=== PATIENT | male | born 1985 | race Hispanic/Latino ===

== ENCOUNTER 2016-12-19 02:26 | Emergency (ER) | payer MEDICAID ==
[2016-12-19] MEDS ORDERED: MOTRIN PO ONE (07:35)
[2016-12-19] MEDS ORDERED: BICILLIN L-A IM ONE (07:35)
[2016-12-19] MEDS ORDERED: DELTASONE PO ONE (07:36)
--- NOTE | 2016-12-19 07:36 | Emergency Department Report ---
HPI - General Chief Complaint: Sore Throat Time Seen by Provider: 12/19/16 07:11 - HPI HPI: Seen here reports that her throat, fever on and off for 3 days. He denies any coughing nasal congestion or headache. Denies any chest pain or shortness of breath. He said he took Motrin [id number] to help with a sore throat. Reports pain is 8 out of 10 and worse with swallowing. Denies any drooling. ED Past Medical Hx - Past Medical History Previous Medical History?: Yes Hx Psychiatric Treatment: Yes Hx Asthma: Yes Additional medical history: bipolar. schizophrenia - Surgical History Past Surgical History?: Yes Additional Surgical History: Left Leg fracture Repair. - Family History Family history: no significant - Social History Smoking Status: Current Every Day Smoker Substance Use Type: None - Medications Home Medications: Home Medications Medication Instructions Recorded Confirmed Last Taken Type Paliperidone Palmitate [Invega 78 mg IM QMONTH 11/02/13 12/19/16 3 Weeks Ago History Sustenna] Ibuprofen [Motrin] 600 mg PO Q8H PRN #15 tablet 12/19/16 Unknown Rx ED Review of Systems ROS: Stated complaint: SORE THROAT Other details as noted in HPI Comment: All other systems reviewed and negative Constitutional: fever. denies: chills Eyes: denies: eye pain, eye discharge ENT: throat pain. denies: ear pain, congestion Respiratory: no symptoms reported Cardiovascular: denies: chest pain, palpitations, edema, syncope Gastrointestinal: denies: abdominal pain, nausea, vomiting Musculoskeletal: denies: back pain, arthralgia Neurological: denies: headache Physical Exam - Physical Exam Vital Signs: Vital Signs 12/19/16 02:43 Temperature 97.8 F Pulse Rate 77 Respiratory 18 Rate Blood Pressure 121/70 O2 Sat by Pulse 96 Oximetry General: This is a 31-year-old male well-nourished well-developed in no acute distress. Physical Exam: Head: Normocephalic atraumatic Mouth: Moist, positive pharyngeal exudate and erythema. Uvula is midline and oral airway is patent. No gingival enlargement or dental tenderness. No facial swelling. No peritonsillar abscesses. Neck: Supple, no C-spine tenderness, no tracheal deviation. Nontender to palpate. Positive anterior cervical adenopathy Ears: Bilateral Pearly Rosas .bilateral EAC without any redness swelling or drainage Eyes: Bilateral pupils equal and reactive to light, bilateral EOM intact. Bilateral sclera and conjunctiva without injection. Normal accommodation Nose: Mucosa moist, Normal mucosa. maxillary and frontal sinus non-tender to palpate. Lungs: Clear to auscultate bilaterally no rhonchi wheezes or rales. Normal work of breathing extremity; No CCE. +2 pulses. No neurovascular compromise Cardiovascular: S1-S2, regular rate rhythm. No murmurs. Skin: clean Dry and intact no rash no lesions Psych: Normal mood and behavior ED Course Vital Signs 12/19/16 02:43 Temperature 97.8 F Pulse Rate 77 Respiratory 18 Rate Blood Pressure 121/70 O2 Sat by Pulse 96 Oximetry - Reevaluation(s) Reevaluation #1: 12/19/16 07:46 Patient stable, given Bicillin LA, Motrin and Deltasone emergency room. ED Medical Decision Making - Medical Decision Making ED course: complaints of sore throat and fever. His vital signs are stable at present. Based on [facility] criteria patient with strep pharyngitis. He has reports of fever, exudative pharyngitis and enlarged lymph nodes. I discussed treatment plan with patient and gave them the option to be treated with Bicillin LA oh to be treated with penicillin for 10 days and he chose to be treated with Bicillin L-A in emergency room. Patient given Motrin 800 mg by mouth, prednisone 60 mg by mouth and Bicillin 1.2 MU in emergency room no adverse reaction. Patient stable discharged home with prescription for Motrin and to follow-up with his primary care physician in 3-5 days. Critical care attestation.: If time is entered above; I have spent that time in minutes in the direct care of this critically ill patient, excluding procedure time. ED Disposition Clinical Impression: Exudative pharyngitis Disposition: DISCHARGED TO HOME OR SELFCARE Is pt being admited?: No Does the pt Need Aspirin: No Condition: Stable Instructions: Strep Throat (ED) Additional Instructions: With warm salt water to relieve sore throat You received Bicillin long-acting injection and this associated body for 2 weeks. Take Motrin for sore throat. Prescriptions: Ibuprofen [Motrin] 600 mg PO Q8H PRN #15 tablet PRN Reason: Pain Referrals: PRIMARY CARE,MD [Primary Care Provider] - 3-5 Days Forms: Work/School Release Form(ED)
[2016-12-19 08:14] VITALS: BP 128/76
== END 2016-12-19 08:01 | disposition home or self-care (01) ==
LOC: ED 02:26
DX: J02.9 Acute pharyngitis, unspecified (principal); J45.909 Unspecified asthma, uncomplicated; F31.9 Bipolar disorder, unspecified; F20.9 Schizophrenia, unspecified; F17.200 Nicotine dependence, unspecified, uncomplicated
CPT/HCPCS: 96372; 99282; J0561; J7512

== ENCOUNTER 2018-05-21 00:05 | Emergency (ER) | payer MEDICAID ==
[2018-05-21] MEDS ORDERED: TYLENOL PO ONE (00:53)
[2018-05-21] MEDS ORDERED: MOTRIN PO ONE (05:07)
[2018-05-21] MEDS ORDERED: MOTRIN ONE (05:11)
[2018-05-21] MEDS ORDERED: DECADRON IV ONE (05:18)
[2018-05-21] MEDS ORDERED: NACL 0.9% 1000 ML 1,000 ML IV ONE (05:23)
[2018-05-21] MEDS ORDERED: PROVENTIL IH ONE (05:26)
[2018-05-21] MEDS ORDERED: CLEOCIN 900 MG/50 mL 900 MG/50 ML BAG IV ONE (05:26)
--- NOTE | 2018-05-21 05:53 | XRay Report ---
FINAL REPORT PROCEDURE: XR CHEST ROUTINE 2V TECHNIQUE: PA and lateral chest radiographs were obtained. CPT 19727 HISTORY: cough wheezing COMPARISON: No prior studies are available for comparison. FINDINGS: Heart: Normal. Mediastinum/Vessels: Normal. Lungs/Pleural space: Normal. Bony thorax: No acute osseous abnormality. Other: IMPRESSION: Normal examination.
[2018-05-21 06:19] LABS: Basophils # (Auto) 0.1 K/mm3 (0.0-0.1); Basophils % (Auto) 0.4 % (0.0-1.8); Eosinophils % (Auto) 0.3 % (0.0-4.3); Hematocrit 42.2 % (35.5-45.6); Hemoglobin 14.4 gm/dl (11.8-15.2); Lymphocytes # (Auto) 1.5 K/mm3 (1.2-5.4); Lymphocytes % (Auto) 10.6 % (13.4-35.0); Mean Corpuscular HGB Conc 34 % (32-34); Mean Corpuscular Hemoglobin 28 pg (28-32); Mean Corpuscular Volume 82 fl (84-94); Monocytes # (Auto) 1.4 K/mm3 (0.0-0.8); Monocytes % (Auto) 10.2 % (0.0-7.3); Platelet Count 257 K/mm3 (140-440); Red Blood Count 5.17 M/mm3 (3.65-5.03); Red Cell Distribution Width 13.6 % (13.2-15.2)
[2018-05-21 06:29] LABS: INR 1.18 (0.87-1.13)
[2018-05-21 06:30] LABS: Partial Thromboplastin Time 32.5 Sec. (24.2-36.6)
--- NOTE | 2018-05-21 06:45 | Emergency Department Report ---
<BRAD WALTERS - Last Filed: 05/21/18 07:01> ED General Adult HPI - General Chief complaint: Fever Stated complaint: SORE THROAT FEVER Time Seen by Provider: 05/21/18 05:17 Source: patient Mode of arrival: Ambulatory Limitations: No Limitations - History of Present Illness Initial comments: Patient is a 32-year-old white male who presented for sore throat and fever 104.1 subjective over the past 2 days states sore throat S Kojo worsening symptoms include dysphagia cough productive wheezing with nausea and vomiting, patient denies chest pain does endorse history of bronchitis there are no relieving or exacerbating factors. Onset/Timin -: days(s) Severity scale (0 -10): 5 Quality: burning, sharp Consistency: constant Improves with: none, eating Worsens with: movement, other (activity ) Associated Symptoms: cough, fever/chills, headaches, loss of appetite, malaise, nausea/vomiting. denies: confusion, chest pain, rash, shortness of breath, syncope, weakness - Related Data Home Medications Medication Instructions Recorded Confirmed Last Taken Paliperidone Palmitate [Invega 78 mg IM QMONTH 11/02/13 12/19/16 3 Weeks Ago Sustenna] ~11/28/16 Previous Rx's Medication Instructions Recorded Last Taken Type Ibuprofen [Motrin] 600 mg PO Q8H PRN #15 tablet 12/19/16 Unknown Rx Benzocaine/Menth/Cetylpyrd 1 each MM Q2H PRN #3 packet 05/21/18 Unknown Rx [Cepacol X Strength] Clindamycin [Clindamycin CAP] 300 mg PO Q8H #30 cap 05/21/18 Unknown Rx Dexamethasone [Decadron] 4 mg PO BID #4 tablet 05/21/18 Unknown Rx Ibuprofen 800 mg PO TID PRN #30 tablet 05/21/18 Unknown Rx Allergies Allergy/AdvReac Type Severity Reaction Status Date / Time ziprasidone HCl [From [facility]] Allergy Unknown Verified 12/19/16 02:43 ziprasidone mesylate Allergy Unknown Verified 12/19/16 02:43 [From [facility]] ED Review of Systems ROS: Stated complaint: SORE THROAT FEVER Other details as noted in HPI Constitutional: chills, fever Eyes: denies: eye pain, eye discharge, vision change ENT: throat pain, congestion Respiratory: cough, wheezing Cardiovascular: denies: chest pain, palpitations Endocrine: no symptoms reported Gastrointestinal: nausea, vomiting. denies: abdominal pain, diarrhea Genitourinary: denies: urgency, dysuria Musculoskeletal: denies: back pain, joint swelling, arthralgia Skin: denies: rash, lesions Neurological: as per HPI, headache. denies: weakness, numbness, paresthesias, confusion, abnormal gait, vertigo Psychiatric: denies: anxiety, depression Hematological/Lymphatic: denies: easy bleeding, easy bruising ED Past Medical Hx - Past Medical History Previous Medical History?: Yes Hx Psychiatric Treatment: Yes Hx Asthma: Yes Additional medical history: bipolar. schizophrenia - Surgical History Past Surgical History?: Yes Additional Surgical History: Left Leg fracture Repair. - Social History Smoking Status: Current Every Day Smoker Substance Use Type: None - Medications Home Medications: Home Medications Medication Instructions Recorded Confirmed Last Taken Type Paliperidone Palmitate [Invega 78 mg IM QMONTH 11/02/13 12/19/16 3 Weeks Ago History Sustenna] ~11/28/16 Ibuprofen [Motrin] 600 mg PO Q8H PRN #15 tablet 12/19/16 Unknown Rx Benzocaine/Menth/Cetylpyrd 1 each MM Q2H PRN #3 packet 05/21/18 Unknown Rx [Cepacol X Strength] Clindamycin [Clindamycin CAP] 300 mg PO Q8H #30 cap 05/21/18 Unknown Rx Dexamethasone [Decadron] 4 mg PO BID #4 tablet 05/21/18 Unknown Rx Ibuprofen 800 mg PO TID PRN #30 tablet 05/21/18 Unknown Rx ED Physical Exam - General Limitations: No Limitations General appearance: alert, in no apparent distress - Head Head exam: Present: atraumatic, normocephalic - Eye Eye exam: Present: normal appearance, PERRL, EOMI Pupils: Present: normal accommodation - ENT ENT exam: Present: mucous membranes moist, TM's normal bilaterally - Expanded ENT Exam Expanded Ear exam: Present: normal external inspection Throat exam: Positive: tonsillar erythema, tonsillomegaly, tonsillar exudate. Negative: R peritonsillar mass, L peritonsillar mass - Neck Neck exam: Present: normal inspection, full ROM, lymphadenopathy. Absent: tenderness, meningismus, thyromegaly - Respiratory Respiratory exam: Present: wheezes, chest wall tenderness - Cardiovascular Cardiovascular Exam: Present: regular rate, normal rhythm, normal heart sounds. Absent: systolic murmur, diastolic murmur, rubs, gallop - GI/Abdominal GI/Abdominal exam: Present: soft, normal bowel sounds. Absent: tenderness, bruit, hernia - Rectal Rectal exam: Present: deferred - Extremities Exam Extremities exam: Present: normal inspection - Back Exam Back exam: Present: normal inspection, full ROM. Absent: tenderness, CVA tenderness (R), CVA tenderness (L), muscle spasm, paraspinal tenderness - Neurological Exam Neurological exam: Present: alert, oriented X3, CN II-XII intact, normal gait - Psychiatric Psychiatric exam: Present: normal affect, normal mood - Skin Skin exam: Present: warm, dry, intact, normal color. Absent: rash ED Course Vital Signs 05/21/18 05/21/18 00:51 05:07 Temperature 102.9 F H 102.2 F H Pulse Rate 105 H Respiratory 18 Rate Blood Pressure 130/78 O2 Sat by Pulse 98 Oximetry ED Medical Decision Making - Lab Data Result diagrams: 05/21/18 05:57 05/21/18 05:57 Laboratory Tests 05/21/18 05/21/18 05/21/18 05:57 05:57 05:57 WBC 14.1 H RBC 5.17 H Hgb 14.4 Hct 42.2 MCV 82 L MCH 28 MCHC 34 RDW 13.6 Plt Count 257 Lymph % (Auto) 10.6 L [place] % (Auto) 10.2 H Eos % (Auto) 0.3 Baso % (Auto) 0.4 Lymph # 1.5 [place] # 1.4 H Eos # 0.0 Baso # 0.1 Seg Neutrophils % 78.5 H Seg Neutrophils # 11.1 H PT 15.5 H INR 1.18 H APTT 32.5 Sodium 135 L Potassium 3.7 Chloride 99.8 Carbon Dioxide 25 Anion Gap 14 BUN 14 Creatinine 0.8 Estimated GFR > 60 BUN/Creatinine Ratio 18 Glucose 115 H Lactic Acid Calcium 9.0 Total Bilirubin 0.20 AST 20 ALT 17 Alkaline Phosphatase 55 Troponin T Total Protein 6.5 Albumin 3.9 Albumin/Globulin Ratio 1.5 Group A Strep Rapid 05/21/18 05/21/18 05/21/18 05:57 05:57 Unknown WBC RBC Hgb Hct MCV MCH MCHC RDW Plt Count Lymph % (Auto) [place] % (Auto) Eos % (Auto) Baso % (Auto) Lymph # Willacy # Eos # Baso # Seg Neutrophils % Seg Neutrophils # PT INR APTT Sodium Potassium Chloride Carbon Dioxide Anion Gap BUN Creatinine Estimated GFR BUN/Creatinine Ratio Glucose Lactic Acid 1.60 Calcium Total Bilirubin AST ALT Alkaline Phosphatase Troponin T < 0.010 Total Protein Albumin Albumin/Globulin Ratio Group A Strep Rapid Positive A - Medical Decision Making plan,: complete sepsis work up , if just pharyngitis will dc to home with , decadron, iubprofen, clindmycin 300 mg po tid x 10 days, cepacol throat lozenges , follow up with pcp in 2-3 days. Critical care attestation.: If time is entered above; I have spent that time in minutes in the direct care of this critically ill patient, excluding procedure time. ED Disposition Clinical Impression: Fever, Strep pharyngitis Disposition: DC-01 TO HOME OR SELFCARE Is pt being admited?: No Does the pt Need Aspirin: No Condition: Stable Instructions: Tonsillitis (ED), Strep Throat (ED), Fever in Adults (ED) Prescriptions: Benzocaine/Menth/Cetylpyrd [Cepacol X Strength] 1 each MM Q2H PRN #3 packet PRN Reason: throat pain Clindamycin [Clindamycin CAP] 300 mg PO Q8H #30 cap Dexamethasone [Decadron] 4 mg PO BID #4 tablet Ibuprofen 800 mg PO TID PRN #30 tablet PRN Reason: pain fever Referrals: MK KEITH MD [Primary Care Provider] - 3-5 Days <MEGHANA QUEEN - Last Filed: 05/21/18 08:46> ED Medical Decision Making - Lab Data Result diagrams: 05/21/18 05:57 05/21/18 05:57 - Addendum Date: 05/21/18 Note: 32-year-old male presents emergency department with fever and sore throat. He was evaluated by Brad Ruiz and treated accordingly for Sirs SIRS. Discharge medications include benzocaine in conjunction with clindamycin in conjunction with Decadron in conjunction with Motrin. Strep culture did come back and did show positive positive result. I did discuss these findings with the patient and gave him another treatment options. He said he would like to try the injection of Bicillin due to his painful swallowing. Examination patient lying in the bed in the lateral decubitus fashion with some perspiration across his forehead, but does report that he does feel better. He is awake and alert. No distress. Reports no chest pain, palpitations, presyncope, abdominal pain. Plan Bicillin and continue with the other palliative treatment courses
[2018-05-21 06:48] LABS: Alanine Aminotransferase 17 units/L (7-56); Albumin 3.9 g/dL (3.9-5); BUN/Creatinine Ratio 18; Blood Urea Nitrogen 14 mg/dL (9-20); Hemolysis Index 2
[2018-05-21] MEDS ORDERED: BICILLIN L-A IM STA (08:40)
[2018-05-21 09:16] VITALS: BP 126/70
== END 2018-05-21 09:49 | disposition home or self-care (01) ==
LOC: ED 00:05
DX: J02.9 Acute pharyngitis, unspecified (principal); R11.2 Nausea with vomiting, unspecified; J45.909 Unspecified asthma, uncomplicated; F31.9 Bipolar disorder, unspecified; F20.9 Schizophrenia, unspecified; F17.200 Nicotine dependence, unspecified, uncomplicated; Z88.8 Allergy status to other drugs, medicaments and biological substances
CPT/HCPCS: 36415; 71046; 80053; 82140; 84484; 85025; 85610; 85730; 87040; 87430; 94640; 96365; 96372; 96375; 99284; J0561; J1100; J7030

== ENCOUNTER 2018-09-01 03:26 | Emergency (ER) | payer OTHER, MEDICAID ==
[2018-09-01 03:43] VITALS: BP 111/68
[2018-09-01] MEDS ORDERED: TORADOL IM ONE (04:22)
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
== END 2018-09-01 05:40 | disposition home or self-care (01) ==
LOC: ED 03:26
DX: S16.1XXA Strain of muscle, fascia and tendon at neck level, initial encounter (principal); S39.012A Strain of muscle, fascia and tendon of lower back, initial encounter; J45.909 Unspecified asthma, uncomplicated; F31.9 Bipolar disorder, unspecified; F20.9 Schizophrenia, unspecified; F17.200 Nicotine dependence, unspecified, uncomplicated; Z88.5 Allergy status to narcotic agent; V87.7XXA Person injured in collision between other specified motor vehicles (traffic), initial encounter; Y93.89 Activity, other specified; Y92.488 Other paved roadways as the place of occurrence of the external cause; Y99.8 Other external cause status
CPT/HCPCS: 72040; 72100; 96372; 99283; J1885

== ENCOUNTER 2019-01-14 21:10 | Emergency (ER) | payer OTHER, MEDICAID ==
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
--- NOTE | 2019-01-14 23:48 | Cat Scan Report ---
PROCEDURE: CT facial bones without contrast. TECHNIQUE: Computerized tomography of the facial bones and soft tissues with axial and coronal secti ons performed from the cranial aspect of the frontal sinuses to the caudal portion of the mandible wi thout contrast material. Automated exposure control, adjustment of mA and/or kV according to patient size, or iterative reconstruction dose optimization techniques were utilized. CT DOSE LENGTH PRODUCT: 702.7 mGycm HISTORY: facial pain/ecchymosis COMPARISONS: None. FINDINGS: The facial bones appear intact. There are no fractures. The orbital contents appear normal. There are no blowout-type injuries. There is mild mucosal thickening in both maxillary sinuses. The mastoid ai r cells are clear. There may be a contusion in the left cheek. IMPRESSION: No evidence of fracture. This document is electronically signed by Max Duke MD., January 14 2019 11:46:41 PM ET
[2019-01-15] MEDS ORDERED: NORCO 5/325 PO ONE (01:03)
[2019-01-15 01:38] VITALS: BP 112/73
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
== END 2019-01-15 02:50 | disposition home or self-care (01) ==
LOC: ED 21:10
DX: R51 Headache (principal); M54.2 Cervicalgia; J45.909 Unspecified asthma, uncomplicated; F20.9 Schizophrenia, unspecified; F31.9 Bipolar disorder, unspecified; F17.200 Nicotine dependence, unspecified, uncomplicated; Z79.899 Other long term (current) drug therapy; Z88.8 Allergy status to other drugs, medicaments and biological substances; V89.2XXA Person injured in unspecified motor-vehicle accident, traffic, initial encounter; Y93.89 Activity, other specified; Y92.488 Other paved roadways as the place of occurrence of the external cause; Y99.8 Other external cause status
CPT/HCPCS: 70450; 70486; 72125; 99283

== ENCOUNTER 2019-02-06 21:47 | Emergency (ER) | payer MEDICAID, OTHER ==
--- NOTE | 2019-02-06 21:57 | Event Note ---
ED Screening Note ED Screening Note: PT presents with a cough that began two days ago +yellow phlegm +rhinorrhea, +congestion unsure of sick contact subjective fever PMHx schizophrenia allergy: geodon +smoker +occ drinker no drug use This initial assessment/diagnostic orders/clinical plan/treatment(s) is/are subject to change based on patients health status, clinical progression and re- assessment by fellow clinical providers in the ED. Further treatment and workup at subsequent clinical providers discretion. Patient/guardian urged not to elope from the ED as their condition may be serious if not clinically assessed and managed. Initial orders include: CXR
[2019-02-06 22:01] VITALS: BP 132/57
--- NOTE | 2019-02-06 22:59 | XRay Report ---
CHEST PA AND LATERAL VIEWS INDICATION: cough. COMPARISON: 05/21/2018. FINDINGS: Support devices: None. Heart: Within normal limits. Lungs/Pleura: No acute pulmonary or pleural findings. IMPRESSION: 1. No significant abnormality. Signer Name: Eliezer Mcfadden MD Signed: 02/06/2019 10:55 PM Workstation Name: [id number]
--- NOTE | 2019-02-06 23:48 | Emergency Department Report ---
- General Chief Complaint: Upper Respiratory Infection Stated Complaint: PAIN WHEN COUGH Time Seen by Provider: 02/06/19 21:55 Source: patient Mode of arrival: Ambulatory Limitations: No Limitations - History of Present Illness Initial Comments: 33-year-old male presents to ED with cough, productive of white sputum, sore throat, wheezing for the past 3 days worse today. Symptoms were also accompanied by low-grade fever, he has not taking any medication for symptoms. He rates them as severe in severity. MD Complaint: fever, cough, sore throat, rhinorrhea - Related Data Home Medications Medication Instructions Recorded Confirmed Last Taken Paliperidone Palmitate [Invega 78 mg IM QMONTH 11/02/13 12/19/16 3 Weeks Ago Sustenna] ~11/28/16 Previous Rx's Medication Instructions Recorded Last Taken Type Ibuprofen [Motrin] 600 mg PO Q8H PRN #15 tablet 12/19/16 Unknown Rx Benzocaine/Mentho [Cepacol X 1 each MM Q2H PRN #3 packet 05/21/18 Unknown Rx Strength] Clindamycin [Clindamycin CAP] 300 mg PO Q8H #30 cap 05/21/18 Unknown Rx Ibuprofen 800 mg PO TID PRN #30 tablet 05/21/18 Unknown Rx dexAMETHasone [Decadron] 4 mg PO BID #4 tablet 05/21/18 Unknown Rx Cyclobenzaprine [Flexeril] 10 mg PO TID PRN #30 tablet 09/01/18 Unknown Rx Menthol/Camphor [[place] 1 applicatio TP QID PRN #1 tube 09/01/18 Unknown Rx Ointment] Naproxen 500 mg PO BID PRN #30 tablet 09/01/18 Unknown Rx Cyclobenzaprine [Flexeril] 10 mg PO TID PRN #30 tablet 01/15/19 Unknown Rx Menthol/Camphor [[place] 4 gm TP QID PRN #1 tube 01/15/19 Unknown Rx Ointment] Naproxen [Naprosyn TAB] 500 mg PO BID #1 tablet 01/15/19 Unknown Rx Albuterol Sulfate [Proventil Hfa] 1 inch IH Q8HR PRN #1 hfa.aer.ad 02/06/19 Unknown Rx Amoxicillin [Amoxicillin TAB] 875 mg PO BID #20 tablet 02/06/19 Unknown Rx Prednisone [predniSONE 5 mg (6-Day 5 mg PO .TAPER #1 tab.ds.pk 02/06/19 Unknown Rx Pack, 21 Tabs)] Allergies Allergy/AdvReac Type Severity Reaction Status Date / Time ziprasidone HCl [From [facility]] Allergy Unknown Verified 12/19/16 02:43 ziprasidone mesylate Allergy Unknown Verified 12/19/16 02:43 [From [facility]] ED Review of Systems ROS: Stated complaint: PAIN WHEN COUGH Other details as noted in HPI Comment: All other systems reviewed and negative ENT: throat pain Respiratory: cough, wheezing Cardiovascular: denies: chest pain, dyspnea on exertion ED Past Medical Hx - Past Medical History Hx Psychiatric Treatment: Yes Hx Asthma: Yes Additional medical history: bipolar. schizophrenia - Surgical History Additional Surgical History: Left Leg fracture Repair. - Social History Smoking Status: Never Smoker Substance Use Type: None - Medications Home Medications: Home Medications Medication Instructions Recorded Confirmed Last Taken Type Paliperidone Palmitate [Invega 78 mg IM QMONTH 11/02/13 12/19/16 3 Weeks Ago History Sustenna] ~11/28/16 Ibuprofen [Motrin] 600 mg PO Q8H PRN #15 tablet 12/19/16 Unknown Rx Benzocaine/Mentho [Cepacol X 1 each MM Q2H PRN #3 packet 05/21/18 Unknown Rx Strength] Clindamycin [Clindamycin CAP] 300 mg PO Q8H #30 cap 05/21/18 Unknown Rx Ibuprofen 800 mg PO TID PRN #30 tablet 05/21/18 Unknown Rx dexAMETHasone [Decadron] 4 mg PO BID #4 tablet 05/21/18 Unknown Rx Cyclobenzaprine [Flexeril] 10 mg PO TID PRN #30 tablet 09/01/18 Unknown Rx Menthol/Camphor [[place] 1 applicatio TP QID PRN #1 tube 09/01/18 Unknown Rx Ointment] Naproxen 500 mg PO BID PRN #30 tablet 09/01/18 Unknown Rx Cyclobenzaprine [Flexeril] 10 mg PO TID PRN #30 tablet 01/15/19 Unknown Rx Menthol/Camphor [[place] 4 gm TP QID PRN #1 tube 01/15/19 Unknown Rx Ointment] Naproxen [Naprosyn TAB] 500 mg PO BID #1 tablet 01/15/19 Unknown Rx Albuterol Sulfate [Proventil Hfa] 1 inch IH Q8HR PRN #1 hfa.aer.ad 02/06/19 Unknown Rx Amoxicillin [Amoxicillin TAB] 875 mg PO BID #20 tablet 02/06/19 Unknown Rx Prednisone [predniSONE 5 mg (6-Day 5 mg PO .TAPER #1 tab.ds.pk 02/06/19 Unknown Rx Pack, 21 Tabs)] ED Physical Exam - General Limitations: No Limitations General appearance: alert, in no apparent distress - Head Head exam: Present: atraumatic, normocephalic - Eye Eye exam: Present: normal appearance, PERRL, EOMI Pupils: Present: normal accommodation - ENT ENT exam: Present: normal exam, normal orophraynx - Neck Neck exam: Present: normal inspection - Respiratory Respiratory exam: Present: wheezes - Cardiovascular Cardiovascular Exam: Present: regular rate, normal rhythm - GI/Abdominal GI/Abdominal exam: Present: soft, normal bowel sounds - Neurological Exam Neurological exam: Present: alert, oriented X3 - Psychiatric Psychiatric exam: Present: normal affect - Skin Skin exam: Present: warm ED Course Vital Signs 02/06/19 02/06/19 21:59 23:52 Temperature 98.5 F Pulse Rate 77 71 Respiratory 18 15 Rate Blood Pressure 132/57 O2 Sat by Pulse 94 97 Oximetry Critical care attestation.: If time is entered above; I have spent that time in minutes in the direct care of this critically ill patient, excluding procedure time. ED Disposition Clinical Impression: Acute bronchitis Qualifiers: Bronchitis organism: other organism Qualified Code(s): J20.8 - Acute bronchitis due to other specified organisms Disposition: DC-01 TO HOME OR SELFCARE Is pt being admited?: No Does the pt Need Aspirin: No Condition: Stable Instructions: Acute Bronchitis (ED) Prescriptions: Amoxicillin [Amoxicillin TAB] 875 mg PO BID #20 tablet Prednisone [predniSONE 5 mg (6-Day Pack, 21 Tabs)] 5 mg PO .TAPER #1 tab.ds.pk Albuterol Sulfate [Proventil Hfa] 1 inch IH Q8HR PRN #1 hfa.aer.ad PRN Reason: Wheezing Referrals: MK KEITH MD [Primary Care Provider] - 3-5 Days Forms: Work/School Release Form(ED)
== END 2019-02-06 23:52 | disposition home or self-care (01) ==
LOC: ED 21:47
DX: J02.9 Acute pharyngitis, unspecified (principal); J45.909 Unspecified asthma, uncomplicated; F31.9 Bipolar disorder, unspecified; F20.9 Schizophrenia, unspecified; Z79.1 Long term (current) use of non-steroidal anti-inflammatories (NSAID); Z79.899 Other long term (current) drug therapy; Z88.5 Allergy status to narcotic agent; Z98.890 Other specified postprocedural states
CPT/HCPCS: 71046; 99283

== ENCOUNTER 2020-03-20 08:39 | Emergency (ER) | payer MEDICAID ==
--- NOTE | 2020-03-20 11:26 | Emergency Department Report ---
ED Rash HPI - HPI Chief Complaint: Urogenital-Male Stated Complaint: TESTICLE PAIN Duration: 3 Days Location: Other (Growing) Rash Symptoms: Yes Itching, Yes Peeling, No Facial Swelling, No Tongue/Oral Swelling, No Breathing Difficulties, No Choking Sensation, No Wheezing/Dyspnea, No Blistering, No Fever, No Lightheaded, No Malaise, No Myalgias Severity: moderate Other History: 34-year-old male with a past medical history of schizophrenia and bipolar presents to the emergency room reporting that he has a rash on his testicles in the head of his penis x2 to 3 days. Patient denies any penile discharge no hematuria. Patient states that he has been picking at his testicles. He denies any fever chills no nausea no vomiting. He denies any drainage from the sore. He reports he just itches. ED Review of Systems ROS: Stated complaint: TESTICLE PAIN Other details as noted in HPI Comment: All other systems reviewed and negative ED Past Medical Hx - Past Medical History Hx Psychiatric Treatment: Yes Hx Asthma: Yes Additional medical history: bipolar. schizophrenia - Surgical History Additional Surgical History: Left Leg fracture Repair. - Social History Smoking Status: Current Every Day Smoker - Medications Home Medications: Home Medications Medication Instructions Recorded Confirmed Last Taken Type Paliperidone Palmitate [Invega 78 mg IM QMONTH 11/02/13 12/19/16 3 Weeks Ago History Sustenna] ~11/28/16 Ibuprofen [Motrin] 600 mg PO Q8H PRN #15 tablet 12/19/16 Unknown Rx Benzocaine/Mentho [Cepacol X 1 each MM Q2H PRN #3 packet 05/21/18 Unknown Rx Strength] Clindamycin [Clindamycin CAP] 300 mg PO Q8H #30 cap 05/21/18 Unknown Rx Ibuprofen 800 mg PO TID PRN #30 tablet 05/21/18 Unknown Rx dexAMETHasone [Decadron] 4 mg PO BID #4 tablet 05/21/18 Unknown Rx Cyclobenzaprine [Flexeril] 10 mg PO TID PRN #30 tablet 09/01/18 Unknown Rx Menthol/Camphor [[place] 1 applicatio TP QID PRN #1 tube 09/01/18 Unknown Rx Ointment] Naproxen 500 mg PO BID PRN #30 tablet 01/31/19 Unknown Rx Cyclobenzaprine [Flexeril] 10 mg PO TID PRN #30 tablet 01/15/19 Unknown Rx Menthol/Camphor [[place] 4 gm TP QID PRN #1 tube 01/15/19 Unknown Rx Ointment] Naproxen [Naprosyn TAB] 500 mg PO BID #1 tablet 01/15/19 Unknown Rx Albuterol Sulfate [Proventil Hfa] 1 inch IH Q8HR PRN #1 hfa.aer.ad 02/06/19 Unknown Rx Amoxicillin [Amoxicillin TAB] 875 mg PO BID #20 tablet 02/06/19 Unknown Rx Prednisone [predniSONE 5 mg (6-Day 5 mg PO .TAPER #1 tab.ds.pk 02/06/19 Unknown Rx Pack, 21 Tabs)] Clotrimazole/Betamethasone Dip 1 applicatio TP BID 10 Days #45 03/20/20 Unknown Rx [Lotrisone Cream] cream..g. Rash Exam - Exam General: Vital signs noted. No distress. Alert and acting appropriately. HEENT: No Periorbital Edema, No Conjuctival Injection, No Chemosis, No Perioral Edema, No Tongue Edema, No Uvular Edema, No Compromised Airway, No Drooling Front/Back of Body, Lg (Color): 1 - Testicles and tip of the penis Skin: Yes Excoriations, Yes Erythema, Yes Encrustations, Yes Other (Demarcated with a clear center erythematous) Other: Positive: Abdomen Normal, Neurologic Normal, Musculoskeletal Normal ED Course Vital Signs 03/20/20 08:56 Temperature 97.9 F Pulse Rate 85 Respiratory 18 Rate Blood Pressure 145/76 O2 Sat by Pulse 97 Oximetry ED Medical Decision Making - Medical Decision Making 34-year-old male with a past medical history of schizophrenia and bipolar presents to the emergency room reporting that he has a rash on his testicles in the head of his penis x2 to 3 days. Patient denies any penile discharge no hematuria. Patient states that he has been picking at his moi ticles. He denies any fever chills no nausea no vomiting. He denies any drainage from the sore. He reports he just itches. Patient appears to have jock itch or tinea creases. Patient be placed on Lotrisone and to follow-up with a silk finisher or primary care provider. Critical care attestation.: If time is entered above; I have spent that time in minutes in the direct care of this critically ill patient, excluding procedure time. ED Disposition Clinical Impression: Tinea cruris Disposition: DC- TO HOME OR SELFCARE Is pt being admited?: No Does the pt Need Aspirin: No Condition: Stable Instructions: Jock Itch (ED) Additional Instructions: Please keep your hands washed and dry avoid picking at your groin area. Apply the antifungal cream to the rash twice a day. And follow-up with a silk finisher I have listed 1 below for your convenience. Prescriptions: Clotrimazole/Betamethasone Dip [Lotrisone Cream] 1 applicatio TP BID 10 Days #45 cream..g. Referrals: PRIMARY CARE, [Primary Care Provider] - 3-5 Days [facility] [Provider Group] - 3-5 Days
[2020-03-20 12:05] VITALS: BP 140/74
== END 2020-03-20 12:03 | disposition home or self-care (01) ==
LOC: ED 08:39
DX: B35.6 Tinea cruris (principal); J45.909 Unspecified asthma, uncomplicated; F20.9 Schizophrenia, unspecified; F17.200 Nicotine dependence, unspecified, uncomplicated; Z98.890 Other specified postprocedural states; Z79.1 Long term (current) use of non-steroidal anti-inflammatories (NSAID); Z79.2 Long term (current) use of antibiotics; Z79.899 Other long term (current) drug therapy; Z88.8 Allergy status to other drugs, medicaments and biological substances
CPT/HCPCS: 99282

== ENCOUNTER 2021-04-16 09:22 | Emergency (ER) | payer MEDICAID ==
[2021-04-16 10:11] VITALS: BP 110/74
--- NOTE | 2021-04-16 10:16 | Emergency Department Report ---
ED General Adult HPI - General Stated complaint: TAILBONE PAIN/TOOTHACHE Time Seen by Provider: 04/16/21 09:54 - History of Present Illness Initial comments: Patient presents with multiple complaints. He has been having pain in the right lower molars. He has significant dentalgia and states that he has had caries for a long time. He has not been on antibiotics lately. The pain is a constant ache that is worse when he eats and worse when he drinks. He has not seen a dentist for this. Pain is been constant. He is used Tylenol [id number]. He has not been on antibiotics lately. Patient also reports having a burning and stinging pain in the coccygeal area. He states that he has a cyst in this area that is just "come up." There is no trauma. He has no fevers or chills per there is no cough or congestion. There is no drainage from the cyst. - Related Data Home Medications Medication Instructions Recorded Confirmed Last Taken Paliperidone Palmitate [Invega 78 mg IM QMONTH 11/02/13 12/19/16 3 Weeks Ago Sustenna] ~11/28/16 Previous Rx's Medication Instructions Recorded Last Taken Type Ibuprofen [Motrin] 600 mg PO Q8H PRN #15 tablet 12/19/16 Unknown Rx Benzocaine/Mentho [Cepacol X 1 each MM Q2H PRN #3 packet 05/21/18 Unknown Rx Strength] Clindamycin [Clindamycin CAP] 300 mg PO Q8H #30 cap 05/21/18 Unknown Rx Ibuprofen 800 mg PO TID PRN #30 tablet 05/21/18 Unknown Rx dexAMETHasone [Decadron] 4 mg PO BID #4 tablet 05/21/18 Unknown Rx Cyclobenzaprine [Flexeril] 10 mg PO TID PRN #30 tablet 09/01/18 Unknown Rx Menthol/Camphor [[place] 1 applicatio TP QID PRN #1 tube 09/01/18 Unknown Rx Ointment] Naproxen 500 mg PO BID PRN #30 tablet 09/01/18 Unknown Rx Cyclobenzaprine [Flexeril] 10 mg PO TID PRN #30 tablet 01/15/19 Unknown Rx Menthol/Camphor [[place] 4 gm TP QID PRN #1 tube 01/15/19 Unknown Rx Ointment] Naproxen [Naprosyn TAB] 500 mg PO BID #1 tablet 01/15/19 Unknown Rx Albuterol Sulfate [Proventil Hfa] 1 inch IH Q8HR PRN #1 hfa.aer.ad 02/06/19 Unknown Rx Amoxicillin [Amoxicillin TAB] 875 mg PO BID #20 tablet 02/06/19 Unknown Rx Prednisone [predniSONE 5 mg (6-Day 5 mg PO .TAPER #1 tab.ds.pk 02/06/19 Unknown Rx Pack, 21 Tabs)] Clotrimazole/Betamethasone Dip 1 applicatio TP BID 10 Days #45 03/20/20 Unknown Rx [Lotrisone Cream] cream..g. Clindamycin [Clindamycin CAP] 300 mg PO Q8H #20 cap 04/16/21 Unknown Rx Ibuprofen [Motrin 600 MG tab] 600 mg PO Q8H PRN #20 tablet 04/16/21 Unknown Rx Allergies Allergy/AdvReac Type Severity Reaction Status Date / Time ziprasidone HCl [From Teliris] Allergy Unknown Verified 12/19/16 02:43 ziprasidone mesylate Allergy Unknown Verified 12/19/16 02:43 [From Geodon] ED Review of Systems ROS: Stated complaint: TAILBONE PAIN/TOOTHACHE Other details as noted in HPI Comment: All other systems reviewed and negative Constitutional: denies: fever Eyes: denies: eye pain ENT: denies: throat pain Respiratory: denies: cough Cardiovascular: denies: chest pain Endocrine: denies: unexplained weight loss Gastrointestinal: denies: abdominal pain Genitourinary: denies: dysuria Musculoskeletal: denies: back pain Skin: denies: rash Neurological: denies: headache Hematological/Lymphatic: denies: easy bruising ED Past Medical Hx - Past Medical History Hx Psychiatric Treatment: Yes Hx Asthma: Yes Additional medical history: bipolar. schizophrenia - Surgical History Additional Surgical History: Left Leg fracture Repair. - Family History Family history: no significant - Social History Smoking Status: Current Every Day Smoker - Medications Home Medications: Home Medications Medication Instructions Recorded Confirmed Last Taken Type Paliperidone Palmitate [Invega 78 mg IM QMONTH 11/02/13 12/19/16 3 Weeks Ago History Sustenna] ~11/28/16 Ibuprofen [Motrin] 600 mg PO Q8H PRN #15 tablet 12/19/16 Unknown Rx Benzocaine/Mentho [Cepacol X 1 each MM Q2H PRN #3 packet 05/21/18 Unknown Rx Strength] Clindamycin [Clindamycin CAP] 300 mg PO Q8H #30 cap 05/21/18 Unknown Rx Ibuprofen 800 mg PO TID PRN #30 tablet 05/21/18 Unknown Rx dexAMETHasone [Decadron] 4 mg PO BID #4 tablet 05/21/18 Unknown Rx Cyclobenzaprine [Flexeril] 10 mg PO TID PRN #30 tablet 09/01/18 Unknown Rx Menthol/Camphor [[place] 1 applicatio TP QID PRN #1 tube 09/01/18 Unknown Rx Ointment] Naproxen 500 mg PO BID PRN #30 tablet 09/01/18 Unknown Rx Cyclobenzaprine [Flexeril] 10 mg PO TID PRN #30 tablet 01/15/19 Unknown Rx Menthol/Camphor [[place] 4 gm TP QID PRN #1 tube 01/15/19 Unknown Rx Ointment] Naproxen [Naprosyn TAB] 500 mg PO BID #1 tablet 01/15/19 Unknown Rx Albuterol Sulfate [Proventil Hfa] 1 inch IH Q8HR PRN #1 hfa.aer.ad 02/06/19 Unknown Rx Amoxicillin [Amoxicillin TAB] 875 mg PO BID #20 tablet 02/06/19 Unknown Rx Prednisone [predniSONE 5 mg (6-Day 5 mg PO .TAPER #1 tab.ds.pk 02/06/19 Unknown Rx Pack, 21 Tabs)] Clotrimazole/Betamethasone Dip 1 applicatio TP BID 10 Days #45 03/20/20 Unknown Rx [Lotrisone Cream] cream..g. Clindamycin [Clindamycin CAP] 300 mg PO Q8H #20 cap 04/16/21 Unknown Rx Ibuprofen [Motrin 600 MG tab] 600 mg PO Q8H PRN #20 tablet 04/16/21 Unknown Rx ED Physical Exam - General General appearance: alert, in no apparent distress - Head Head exam: Present: atraumatic, normocephalic, normal inspection - Eye Eye exam: Present: normal appearance, EOMI. Absent: scleral icterus - ENT ENT exam: Present: mucous membranes moist, normal external ear exam, other (Patient has significant dental caries involving the right lower molars x3. There is no gingival erythema. There is no buccal edema or cellulitis. There is no evidence of abscess.) - Neck Neck exam: Present: normal inspection, full ROM. Absent: tenderness, meningismus - Respiratory Respiratory exam: Present: normal lung sounds bilaterally. Absent: respiratory distress - Cardiovascular Cardiovascular Exam: Present: regular rate, normal rhythm - GI/Abdominal GI/Abdominal exam: Present: soft. Absent: tenderness - Extremities Exam Extremities exam: Present: full ROM - Back Exam Back exam: Absent: CVA tenderness (R) - Neurological Exam Neurological exam: Present: alert, oriented X3, normal gait. Absent: motor sensory deficit - Psychiatric Psychiatric exam: Present: normal affect, normal mood - Skin Skin exam: Present: warm, dry, other (There is tenderness in the gluteal cleft but no evidence of erythema, warmth, induration, or edema. There is no evidence of abscess.) ED Course Vital Signs 04/16/21 04/16/21 09:47 10:10 Temperature 97.8 F 97.9 F Pulse Rate 79 85 Respiratory 18 16 Rate Blood Pressure 118/73 110/74 O2 Sat by Pulse 96 98 Oximetry - Reevaluation(s) Reevaluation #1: 04/16/21 10:14 Patient was discharged. ED Medical Decision Making - Medical Decision Making Patient presented with dentalgia and had local caries noted. There is no evidence of local cellulitis or abscess otherwise. He does not have gingivitis. Antibiotics were initiated. Patient also has symptoms that are consistent with a pilonidal cyst but no evidence of pilonidal abscess. He was given analgesics and referred to surgery for ongoing treatment and evaluation. Critical Care Time: No Critical care attestation.: If time is entered above; I have spent that time in minutes in the direct care of this critically ill patient, excluding procedure time. ED Disposition Clinical Impression: Apical alveolar abscess, Dental caries, Pilonidal cyst Disposition: 01 HOME / SELF CARE / HOMELESS Is pt being admited?: No Does the pt Need Aspirin: No Condition: Stable Instructions: Dental Abscess, [id number], Pilonidal Cyst Additional Instructions: Have a soft diet. Follow-up with a surgeon for your pilonidal cyst. Follow-up with a dentist for your cavities. Drink plenty of water. Use Tylenol for fever. Prescriptions: Clindamycin [Clindamycin CAP] 300 mg PO Q8H #20 cap Ibuprofen [Motrin 600 MG tab] 600 mg PO Q8H PRN #20 tablet PRN Reason: Pain Referrals: PRIMARY CARE,MD [Primary Care Provider] - 3-5 Days MYLES REAVES DO [Staff Physician] - 3-5 Days
== END 2021-04-16 10:11 | disposition home or self-care (01) ==
LOC: ED 09:22
DX: K04.6 Periapical abscess with sinus (principal); K02.9 Dental caries, unspecified; L05.91 Pilonidal cyst without abscess; J45.909 Unspecified asthma, uncomplicated; F20.9 Schizophrenia, unspecified; F31.9 Bipolar disorder, unspecified; Z98.890 Other specified postprocedural states; F17.200 Nicotine dependence, unspecified, uncomplicated; Z88.8 Allergy status to other drugs, medicaments and biological substances
CPT/HCPCS: 99282

== ENCOUNTER 2021-06-02 06:20 | Emergency (ER) | payer MEDICAID ==
[2021-06-02 06:29] VITALS: BP 134/84
--- NOTE | 2021-06-02 07:42 | Emergency Department Report ---
ED General Adult HPI - General Chief complaint: Chest Pain Stated complaint: CHEST PAIN SWOLLEN BACK Time Seen by Provider: 06/02/21 07:23 Source: patient Mode of arrival: Ambulatory Limitations: No Limitations - History of Present Illness Initial comments: The patient was evaluated in the emergency department for symptoms described in the history of present illness. He/she was evaluated in the context of the global COVID-19 pandemic, which necessitated consideration that the patient might be at risk for infection with the virus that causes COVID-19. Institutional protocols and algorithms that pertain to the evaluation of patients at risk for COVID-19 are in a state of rapid change based on information released by regulatory bodies including the CDC and federal and state organizations. These policies and algorithms were followed during the patient's care in the emergency department. Please note that these policies, procedures and recommendations changed on a rapid basis. 35-year-old male presents to the emergency room complaining of chest wall tenderness. Patient states this started 2 days ago. Patient is taking nothing for his discomfort. Denies any internal chest pain no shortness of breath. Patient denies any fever chills no nausea no vomiting no diarrhea. He does suffer from schizophrenia and bipolar. He does have a primary care provider. Not taking anything for pain. Onset/Timin -: days(s) Location: chest Radiation: non-radiation Severity scale (0 -10): 2 Quality: other (soreness) Consistency: constant Improves with: none Worsens with: other (palpation) Associated Symptoms: denies other symptoms Treatments Prior to Arrival: none - Related Data Home Medications Medication Instructions Recorded Confirmed Last Taken Paliperidone Palmitate [Invega 78 mg IM QMONTH 11/02/13 12/19/16 3 Weeks Ago Sustenna] ~11/28/16 Previous Rx's Medication Instructions Recorded Last Taken Type Ibuprofen [Motrin] 600 mg PO Q8H PRN #15 tablet 12/19/16 Unknown Rx Benzocaine/Mentho [Cepacol X 1 each MM Q2H PRN #3 packet 05/21/18 Unknown Rx Strength] Clindamycin [Clindamycin CAP] 300 mg PO Q8H #30 cap 05/21/18 Unknown Rx Ibuprofen 800 mg PO TID PRN #30 tablet 05/21/18 Unknown Rx dexAMETHasone [Decadron] 4 mg PO BID #4 tablet 05/21/18 Unknown Rx Cyclobenzaprine [Flexeril] 10 mg PO TID PRN #30 tablet 09/01/18 Unknown Rx Menthol/Camphor [[place] 1 applicatio TP QID PRN #1 tube 09/01/18 Unknown Rx Ointment] Naproxen 500 mg PO BID PRN #30 tablet 09/01/18 Unknown Rx Cyclobenzaprine [Flexeril] 10 mg PO TID PRN #30 tablet 01/15/19 Unknown Rx Menthol/Camphor [[place] 4 gm TP QID PRN #1 tube 01/15/19 Unknown Rx Ointment] Naproxen [Naprosyn TAB] 500 mg PO BID #1 tablet 01/15/19 Unknown Rx Albuterol Sulfate [Proventil Hfa] 1 inch IH Q8HR PRN #1 hfa.aer.ad 02/06/19 Unknown Rx Amoxicillin [Amoxicillin TAB] 875 mg PO BID #20 tablet 02/06/19 Unknown Rx Prednisone [predniSONE 5 mg (6-Day 5 mg PO .TAPER #1 tab.ds.pk 02/06/19 Unknown Rx Pack, 21 Tabs)] Clotrimazole/Betamethasone Dip 1 applicatio TP BID 10 Days #45 03/20/20 Unknown Rx [Lotrisone Cream] cream..g. Clindamycin [Clindamycin CAP] 300 mg PO Q8H #20 cap 04/16/21 Unknown Rx Ibuprofen [Motrin 600 MG tab] 600 mg PO Q8H PRN #20 tablet 04/16/21 Unknown Rx Allergies Allergy/AdvReac Type Severity Reaction Status Date / Time ziprasidone HCl [From Geodon] Allergy Unknown Verified 12/19/16 02:43 ziprasidone mesylate Allergy Unknown Verified 12/19/16 02:43 [From Albertodon] ED Review of Systems ROS: Stated complaint: CHEST PAIN SWOLLEN BACK Other details as noted in HPI ED Past Medical Hx - Past Medical History Hx Psychiatric Treatment: Yes Hx Asthma: Yes Additional medical history: bipolar. schizophrenia - Surgical History Additional Surgical History: Left Leg fracture Repair. - Social History Smoking Status: Current Every Day Smoker - Medications Home Medications: Home Medications Medication Instructions Recorded Confirmed Last Taken Type Paliperidone Palmitate [Invega 78 mg IM QMONTH 11/02/13 12/19/16 3 Weeks Ago History Sustenna] ~11/28/16 Ibuprofen [Motrin] 600 mg PO Q8H PRN #15 tablet 12/19/16 Unknown Rx Benzocaine/Mentho [Cepacol X 1 each MM Q2H PRN #3 packet 05/21/18 Unknown Rx Strength] Clindamycin [Clindamycin CAP] 300 mg PO Q8H #30 cap 05/21/18 Unknown Rx Ibuprofen 800 mg PO TID PRN #30 tablet 05/21/18 Unknown Rx dexAMETHasone [Decadron] 4 mg PO BID #4 tablet 05/21/18 Unknown Rx Cyclobenzaprine [Flexeril] 10 mg PO TID PRN #30 tablet 09/01/18 Unknown Rx Menthol/Camphor [[place] 1 applicatio TP QID PRN #1 tube 09/01/18 Unknown Rx Ointment] Naproxen 500 mg PO BID PRN #30 tablet 09/01/18 Unknown Rx Cyclobenzaprine [Flexeril] 10 mg PO TID PRN #30 tablet 01/15/19 Unknown Rx Menthol/Camphor [[place] 4 gm TP QID PRN #1 tube 01/15/19 Unknown Rx Ointment] Naproxen [Naprosyn TAB] 500 mg PO BID #1 tablet 01/15/19 Unknown Rx Albuterol Sulfate [Proventil Hfa] 1 inch IH Q8HR PRN #1 hfa.aer.ad 02/06/19 Unknown Rx Amoxicillin [Amoxicillin TAB] 875 mg PO BID #20 tablet 02/06/19 Unknown Rx Prednisone [predniSONE 5 mg (6-Day 5 mg PO .TAPER #1 tab.ds.pk 02/06/19 Unknown Rx Pack, 21 Tabs)] Clotrimazole/Betamethasone Dip 1 applicatio TP BID 10 Days #45 03/20/20 Unknown Rx [Lotrisone Cream] cream..g. Clindamycin [Clindamycin CAP] 300 mg PO Q8H #20 cap 04/16/21 Unknown Rx Ibuprofen [Motrin 600 MG tab] 600 mg PO Q8H PRN #20 tablet 04/16/21 Unknown Rx ED Physical Exam - General Limitations: No Limitations General appearance: alert, in no apparent distress - Head Head exam: Present: atraumatic, normocephalic - Eye Eye exam: Present: normal appearance - ENT ENT exam: Present: mucous membranes moist - Neck Neck exam: Present: normal inspection - Respiratory Respiratory exam: Present: normal lung sounds bilaterally, chest wall tenderness. Absent: respiratory distress - Cardiovascular Cardiovascular Exam: Present: regular rate, normal rhythm. Absent: systolic murmur, diastolic murmur, rubs, gallop - GI/Abdominal GI/Abdominal exam: Present: soft, normal bowel sounds - Rectal Rectal exam: Present: deferred - Extremities Exam Extremities exam: Present: normal inspection - Back Exam Back exam: Present: normal inspection - Neurological Exam Neurological exam: Present: alert, oriented X3 - Psychiatric Psychiatric exam: Present: normal affect, normal mood - Skin Skin exam: Present: warm, dry, intact, normal color. Absent: rash ED Course Vital Signs 06/02/21 06:26 Temperature 98.3 F Pulse Rate 93 H Respiratory 18 Rate Blood Pressure 134/84 O2 Sat by Pulse 97 Oximetry ED Medical Decision Making - Medical Decision Making 35-year-old male presents to the emergency room complaining of chest wall tenderness. Patient states this started 2 days ago. Patient is taking nothing for his discomfort. Denies any internal chest pain no shortness of breath. Patient denies any fever chills no nausea no vomiting no diarrhea. He does suffer from schizophrenia and bipolar. He does have a primary care provider. Not taking anything for pain. Patient has chest wall tenderness where he lays on his keys that he keeps around his neck. Encourage patient to remove keys when he lays down Tylenol or ibuprofen for pain and follow-up with his primary care provider. Critical care attestation.: If time is entered above; I have spent that time in minutes in the direct care of this critically ill patient, excluding procedure time. ED Disposition Clinical Impression: Tenderness of chest wall Disposition: HOME / SELF CARE / HOMELESS Is pt being admited?: No Does the pt Need Aspirin: No Condition: Stable Instructions: Nonspecific Chest Pain, Adult Additional Instructions: Encourage patient to remove keys when he lays down Tylenol or ibuprofen for pain and follow-up with his primary care provider. Referrals: Your, primary care provider [Other] - 3-5 Days Forms: Work/School Release Form(ED) Time of Disposition: 07:41
== END 2021-06-02 08:05 | disposition home or self-care (01) ==
LOC: ED 06:20
DX: R07.89 Other chest pain (principal); F17.200 Nicotine dependence, unspecified, uncomplicated; J45.909 Unspecified asthma, uncomplicated; F20.9 Schizophrenia, unspecified; F31.9 Bipolar disorder, unspecified
CPT/HCPCS: 99281

== ENCOUNTER 2021-09-02 10:37 | Emergency (ER) | payer MEDICAID ==
[2021-09-02] MEDS ORDERED: IBUPROFEN 800 MG TAB PO STA (12:38)
[2021-09-02] MEDS ORDERED: oxyCODONE /ACETAMINOPHEN 5-325MG TAB PO ONE (12:38)
--- NOTE | 2021-09-02 12:43 | Emergency Department Report ---
ED General Adult HPI - General Chief complaint: Wound/Laceration Stated complaint: INFECTION Time Seen by Provider: 09/02/21 11:57 Source: patient Mode of arrival: Ambulatory Limitations: No Limitations - History of Present Illness Initial comments: 36-year-old male patient presents with complaints of painful abscess to the buttocks x3 days. Patient states the abscess has been present for about 3 months, however suddenly became painful and red a few days ago. He denies any fever/chills/sweats, abdominal pain, or nausea/vomiting/diarrhea. No difficulty with defecation per patient. NKDA per patient. He rates his current pain as a 9/10 in severity. - Related Data Home Medications Medication Instructions Recorded Confirmed Last Taken Paliperidone Palmitate [Invega 78 mg IM QMONTH 11/02/13 12/19/16 3 Weeks Ago S[facility]] ~11/28/16 Previous Rx's Medication Instructions Recorded Last Taken Type Ibuprofen [Motrin] 600 mg PO Q8H PRN #15 tablet 12/19/16 Unknown Rx Benzocaine/Mentho [Cepacol X 1 each MM Q2H PRN #3 packet 05/21/18 Unknown Rx Strength] Clindamycin [Clindamycin CAP] 300 mg PO Q8H #30 cap 05/21/18 Unknown Rx Ibuprofen 800 mg PO TID PRN #30 tablet 05/21/18 Unknown Rx dexAMETHasone [Decadron] 4 mg PO BID #4 tablet 05/21/18 Unknown Rx Cyclobenzaprine [Flexeril] 10 mg PO TID PRN #30 tablet 09/01/18 Unknown Rx Menthol/Camphor [[place] 1 applicatio TP QID PRN #1 tube 09/01/18 Unknown Rx Ointment] Naproxen 500 mg PO BID PRN #30 tablet 09/01/18 Unknown Rx Cyclobenzaprine [Flexeril] 10 mg PO TID PRN #30 tablet 01/15/19 Unknown Rx Menthol/Camphor [[place] 4 gm TP QID PRN #1 tube 01/15/19 Unknown Rx Ointment] Naproxen [Naprosyn TAB] 500 mg PO BID #1 tablet 01/15/19 Unknown Rx Albuterol Sulfate [Proventil Hfa] 1 inch IH Q8HR PRN #1 hfa.aer.ad 02/06/19 Unknown Rx Amoxicillin [Amoxicillin TAB] 875 mg PO BID #20 tablet 02/06/19 Unknown Rx Prednisone [predniSONE 5 mg (6-Day 5 mg PO .TAPER #1 tab.ds.pk 02/06/19 Unknown Rx Pack, 21 Tabs)] Clotrimazole/Betamethasone Dip 1 applicatio TP BID 10 Days #45 03/20/20 Unknown Rx [Lotrisone Cream] cream..g. Clindamycin [Clindamycin CAP] 300 mg PO Q8H #20 cap 04/16/21 Unknown Rx Ibuprofen [Motrin 600 MG tab] 600 mg PO Q8H PRN #20 tablet 04/16/21 Unknown Rx Acetaminophen/Codeine [Tylenol 1 tab PO Q8H PRN #8 tab 09/02/21 Unknown Rx /Codeine # 3 tab] Ibuprofen [Motrin 800 MG tab] 800 mg PO Q8HR PRN #21 tablet 09/02/21 Unknown Rx Mupirocin [Bactroban 2% OINT] 1 applic TP TID 10 Days #1 tube 09/02/21 Unknown Rx Sulfamethoxazole/Trimethoprim 1 each PO BID 10 Days #20 tab 09/02/21 Unknown Rx [Bactrim DS TAB] metroNIDAZOLE [Flagyl TAB] 500 mg PO Q8HR 10 Days #30 tab 09/02/21 Unknown Rx Allergies Allergy/AdvReac Type Severity Reaction Status Date / Time ziprasidone HCl [From [facility]] Allergy Unknown Verified 09/02/21 10:41 ziprasidone mesylate Allergy Unknown Verified 09/02/21 10:41 [From [facility]] ED Review of Systems ROS: Stated complaint: INFECTION Other details as noted in HPI Constitutional: denies: chills, fever, malaise Musculoskeletal: denies: joint swelling, arthralgia Skin: change in color ED Past Medical Hx - Past Medical History Hx Psychiatric Treatment: Yes Hx Asthma: Yes Additional medical history: bipolar. schizophrenia - Surgical History Additional Surgical History: Left Leg fracture Repair. - Social History Smoking Status: Current Every Day Smoker - Medications Home Medications: Home Medications Medication Instructions Recorded Confirmed Last Taken Type Paliperidone Palmitate [Invega 78 mg IM QMONTH 11/02/13 12/19/16 3 Weeks Ago History [facility]] ~11/28/16 Ibuprofen [Motrin] 600 mg PO Q8H PRN #15 tablet 12/19/16 Unknown Rx Benzocaine/Mentho [Cepacol X 1 each MM Q2H PRN #3 packet 05/21/18 Unknown Rx Strength] Clindamycin [Clindamycin CAP] 300 mg PO Q8H #30 cap 05/21/18 Unknown Rx Ibuprofen 800 mg PO TID PRN #30 tablet 05/21/18 Unknown Rx dexAMETHasone [Decadron] 4 mg PO BID #4 tablet 05/21/18 Unknown Rx Cyclobenzaprine [Flexeril] 10 mg PO TID PRN #30 tablet 09/01/18 Unknown Rx Menthol/Camphor [[place] 1 applicatio TP QID PRN #1 tube 09/01/18 Unknown Rx Ointment] Naproxen 500 mg PO BID PRN #30 tablet 09/01/18 Unknown Rx Cyclobenzaprine [Flexeril] 10 mg PO TID PRN #30 tablet 01/15/19 Unknown Rx Menthol/Camphor [[place] 4 gm TP QID PRN #1 tube 01/15/19 Unknown Rx Ointment] Naproxen [Naprosyn TAB] 500 mg PO BID #1 tablet 01/15/19 Unknown Rx Albuterol Sulfate [Proventil Hfa] 1 inch IH Q8HR PRN #1 hfa.aer.ad 02/06/19 Unknown Rx Amoxicillin [Amoxicillin TAB] 875 mg PO BID #20 tablet 02/06/19 Unknown Rx Prednisone [predniSONE 5 mg (6-Day 5 mg PO .TAPER #1 tab.ds.pk 02/06/19 Unknown Rx Pack, 21 Tabs)] Clotrimazole/Betamethasone Dip 1 applicatio TP BID 10 Days #45 03/20/20 Unknown Rx [Lotrisone Cream] cream..g. Clindamycin [Clindamycin CAP] 300 mg PO Q8H #20 cap 04/16/21 Unknown Rx Ibuprofen [Motrin 600 MG tab] 600 mg PO Q8H PRN #20 tablet 04/16/21 Unknown Rx Acetaminophen/Codeine [Tylenol 1 tab PO Q8H PRN #8 tab 09/02/21 Unknown Rx /Codeine # 3 tab] Ibuprofen [Motrin 800 MG tab] 800 mg PO Q8HR PRN #21 tablet 09/02/21 Unknown Rx Mupirocin [Bactroban 2% OINT] 1 applic TP TID 10 Days #1 tube 09/02/21 Unknown Rx Sulfamethoxazole/Trimethoprim 1 each PO BID 10 Days #20 tab 09/02/21 Unknown Rx [Bactrim DS TAB] metroNIDAZOLE [Flagyl TAB] 500 mg PO Q8HR 10 Days #30 tab 09/02/21 Unknown Rx ED Physical Exam - General Limitations: No Limitations General appearance: alert, in no apparent distress - Head Head exam: Present: atraumatic, normocephalic - Eye Eye exam: Present: normal appearance. Absent: scleral icterus - Respiratory Respiratory exam: Absent: respiratory distress - Cardiovascular Cardiovascular Exam: Present: regular rate - GI/Abdominal GI/Abdominal exam: Present: soft. Absent: tenderness - Rectal Rectal exam: Present: other (Pilonidal abscess noted to gluteal cleft without surrounding cellulitic changes there is significant tenderness to palpation central fluctuance noted; abscess is approximately 3 cm and ovoid;) ED Course Vital Signs 09/02/21 09/02/21 10:41 15:25 Temperature 98.3 F 97.9 F Pulse Rate 93 H 83 Respiratory 20 16 Rate Blood Pressure 120/80 Blood Pressure 121/79 [Left] O2 Sat by Pulse 97 100 Oximetry - I & D Buttocks Site: Pilonidal, gluteal cleft Blade Size: 11 I & D Procedure: betadine prep, sterile drapes applied, sterile dressing applied, no gauze wick placed (Patient declined) Progress: 6 cc of lidocaine 1% without epi used to anesthetize area. Moderate purulent drainage obtained from wound. Patient tolerated procedure well without any immediate complications. ED Medical Decision Making - Medical Decision Making 36-year-old male patient presents with complaints of painful abscess to the buttocks x3 days. Patient states the abscess has been present for about 3 months, however suddenly became painful and red a few days ago. He denies any fever/chills/sweats, abdominal pain, or nausea/vomiting/diarrhea. No difficulty with defecation per patient. NKDA per patient. He rates his current pain as a 9/10 in severity. Incision and drainage performed. Discussed wound care and signs and symptoms that should prompt immediate return to the ED with patient who verbalizes understanding. He is to follow-up with general surgery for further evaluation and treatment of his pilonidal abscess Critical care attestation.: If time is entered above; I have spent that time in minutes in the direct care of this critically ill patient, excluding procedure time. ED Disposition Clinical Impression: Pilonidal abscess Disposition: 01 HOME / SELF CARE / HOMELESS Is pt being admited?: No Condition: Stable Instructions: Pilonidal Cyst, Pilonidal Cyst Drainage, Care After Additional Instructions: Return to the emergency department in 3 days for packing removal Prescriptions: Sulfamethoxazole/Trimethoprim [Bactrim DS TAB] 1 each PO BID 10 Days #20 tab Mupirocin [Bactroban 2% OINT] 1 applic TP TID 10 Days #1 tube metroNIDAZOLE [Flagyl TAB] 500 mg PO Q8HR 10 Days #30 tab Ibuprofen [Motrin 800 MG tab] 800 mg PO Q8HR PRN #21 tablet PRN Reason: pain Acetaminophen/Codeine [Tylenol /Codeine # 3 tab] 1 tab PO Q8H PRN #8 tab PRN Reason: Pain , Severe (7-10) Referrals: MYLES REAVES DO [Staff Physician] - 3-5 Days Forms: Work/School Release Form(ED)
[2021-09-02] MEDS ORDERED: LIDOCAINE (1%) 10 MG/1 ML VIAL 20 ML MDV INFILTRATI ONE (13:47)
[2021-09-02 15:26] VITALS: BP 121/79
== END 2021-09-02 15:25 | disposition home or self-care (01) ==
LOC: ED 10:37
DX: L05.01 Pilonidal cyst with abscess (principal); J45.909 Unspecified asthma, uncomplicated; F31.9 Bipolar disorder, unspecified; F20.9 Schizophrenia, unspecified; F17.200 Nicotine dependence, unspecified, uncomplicated; Z79.899 Other long term (current) drug therapy; Z98.890 Other specified postprocedural states; Z88.1 Allergy status to other antibiotic agents; Z91.09 Other allergy status, other than to drugs and biological substances
CPT/HCPCS: 10080; 99282; J3490